=== PATIENT | male | born 1980 | race Caucasian/White ===

== ENCOUNTER → 2016-10-19 | Outpatient (CLI) | payer MEDICARE, MEDICAID ==
[~2016-10-19] MED LIST: ACETAMINOP160 MG/51 GT; ASCORBIC ACID GT; BACTROBAN OINT.22 GM TP; CHOLECALCIFEROL GT; DUONEB DPS3 ML IH; KENALOG CREAM 080 GM TP; KEPPRA500 MG/5 M GT; MAALOX DPS30 ML PO; MOTRIN SUS100 MG/5 M GT; OMEPRAZOLE10 MG GT; PHENERGAN SUPP25 MG PR; POTASSIUM20 MEQ/15 GT; ROBITUSSIN200 MG/10 GT; SURFAK DPS240 MG PO; TYLENOL DPS325 MG PO; VALIUM DPS GT; VIMPAT200 MG/20 GT; VITAMIN A GT; ZOFRAN ODT4 MG PO
== END | disposition home or self-care (01) ==
LOC: RAD.S 14:30
PROC: 3E0H3KZ Introduction of Other Diagnostic Substance into Lower GI, Percutaneous Approach (ICD-10-PCS; principal; 2016-10-19)
DX: Z43.1 Encounter for attention to gastrostomy (principal)